=== PATIENT | female | born 1980 | race Caucasian/White ===

== ENCOUNTER → 2017-05-28 | Outpatient (CLI) | payer BC ==
[~2017-05-28] MED LIST: BENADRYL 25MG C25 MG PO; CLARITIN 10MG T10 MG PO; ERRIN0.35 MG PO; FLONASE 50 MCG16 GM; PREDNISONE 10MG10 MG PO; RANITIDINE HCL150 MG PO; TOPAMAX100 MG PO; VENTOLIN H0.09 MG/AC IH; ZYRTEC 10MG TAB10 MG PO
== END ==
LOC: LAB 14:40
DX: Z34.00 Encounter for supervision of normal first pregnancy, unspecified trimester (principal)